=== PATIENT | male | born 1985 | race Caucasian/White ===

== ENCOUNTER 2017-09-05 19:35 | Emergency (ER) | payer MEDICAID ==
[~2017-09-05] VITALS: Ht 177.8 cm; Wt 70.0 kg
[2017-09-05 19:36] VITALS: BP 124/71
[2017-09-05] MEDS ORDERED: ibuprofen tablet 400 MG TABLET PO ONE (21:00)
[2017-09-05] MEDS ORDERED: IBUP-1984 PO (22:36)
== END 2017-09-05 22:46 ==
LOC: ER 19:35
DX: S02.2XXA Fracture of nasal bones, initial encounter for closed fracture (principal); F17.200 Nicotine dependence, unspecified, uncomplicated; Z88.0 Allergy status to penicillin; Z79.1 Long term (current) use of non-steroidal anti-inflammatories (NSAID); Y04.0XXA Assault by unarmed brawl or fight, initial encounter; Y93.89 Activity, other specified; Y92.89 Other specified places as the place of occurrence of the external cause; Y99.8 Other external cause status
CPT/HCPCS: 70486; 99284